=== PATIENT | male | born 1995 | race Caucasian/White ===

== ENCOUNTER → 2018-06-23 | Outpatient (CLI) | payer BC | LOC: SUN.DIA 09:03 | DX: E10.8 Type 1 diabetes mellitus with unspecified complications (principal); Z79.4 Long term (current) use of insulin | CPT/HCPCS: G0108 ==

== ENCOUNTER → 2018-06-29 | Outpatient (CLI) | payer BC | LOC: SUN.DIA 07:43 | DX: E10.8 Type 1 diabetes mellitus with unspecified complications (principal); Z79.4 Long term (current) use of insulin | CPT/HCPCS: G0108 ==

== ENCOUNTER → 2018-07-13 | Outpatient (CLI) | payer BC | LOC: SUN.DIA 12:52 | DX: E10.8 Type 1 diabetes mellitus with unspecified complications (principal); Z79.4 Long term (current) use of insulin | CPT/HCPCS: G0108 ==

== ENCOUNTER → 2018-08-10 | Outpatient (CLI) | payer BC | LOC: SUN.DIA 01:27 | DX: E10.8 Type 1 diabetes mellitus with unspecified complications (principal); Z79.4 Long term (current) use of insulin | CPT/HCPCS: G0108 ==

== ENCOUNTER → 2018-11-23 | Outpatient (CLI) | payer BC | LOC: SUN.DIA 15:31 | DX: E10.8 Type 1 diabetes mellitus with unspecified complications (principal); Z79.4 Long term (current) use of insulin | CPT/HCPCS: G0108 ==